=== PATIENT | male | born 1955 | race Hispanic/Latino ===

== ENCOUNTER → 2020-10-31 | Emergency (ER) | payer OTHER ==
[~2020-10-31] MED LIST: EPINEPHrine 1 MG/10 ML SYRINGE ONE; SODIUM BICARB 8.4% 50 MEQ/50 ML SYRINGE IV ONE
--- NOTE | 2020-10-31 06:30 | Emergency Department Report ---
ED Palpitations HPI - General Stated Complaint: CARDIAC ARREST Time Seen by Provider: 10/31/20 06:05 - History of Present Illness Initial Comments: Patient is a 65-year-old male with past medical history of hypertension who went to cardiac arrest this morning. states that he had woke up to go to work and was in the garage putting on his shoes. His states she normally stays awake long enough to reset the alarm but she did hit the garage door go down. She went to check on the patient and he had lost consciousness and collapsed to the ground. Paramedics were called. Patient had just had vacation and was feeling well but complained of being extremely hot prior to leaving the house. Patient was intubated with a Tommie airway and several doses of epinephrine were given prior to his arrival. He was defibrillated once for fine V. fib but has been in asystole for the last 20 to 30 minutes. - Related Data Allergies Allergy/AdvReac Type Severity Reaction Status Date / Time No Known Allergies Allergy Unverified 03/01/14 09:15 ED Review of Systems ROS: Stated complaint: CARDIAC ARREST Other details as noted in HPI Comment: Unobtainable due to pts medical conditions ED Physical Exam - General General appearance: obtunded - Head Head exam: Present: atraumatic - Eye Eye exam: Present: other (Fixed and dilated) - ENT ENT exam: Present: normal orophraynx - Respiratory Respiratory exam: Present: other (Normal breath sounds with bagging) - Cardiovascular Cardiovascular Exam: Present: other - GI/Abdominal GI/Abdominal exam: Present: distended (No spontaneous heart tones) - Skin Skin exam: Present: warm, dry, intact ED Medical Decision Making - Medical Decision Making Replace the Tommie airway with endotracheal tube. Was able to pass 8 oh endotracheal tube with a glide scope with no issue. Continued to bag the patient on his arrival. Patient was in asystole. Was given 2 doses of epinephrine and bicarb here in emergency department were unable to resuscitate patient. His is notified. Patient pronounced . Critical care attestation.: If time is entered above; I have spent that time in minutes in the direct care of this critically ill patient, excluding procedure time. ED Disposition Clinical Impression: Cardiopulmonary arrest Disposition: DC-20 Is pt being admited?: No Does the pt Need Aspirin: No Condition: Stable Time of Disposition: 06:29
== END ==
LOC: ED 05:47
DX: I46.9 Cardiac arrest, cause unspecified (principal)
CPT/HCPCS: 31500; 99285; J0171